=== PATIENT | female | born 1975 | race Caucasian/White ===

== ENCOUNTER 2017-06-20 14:14 | Observation (INO) | payer OTHER ==
[2017-06-20] MEDS ORDERED: SODIUM CHLORIDE 0.9% 1,000 ML IV STA (14:43)
[2017-06-20 15:25] LABS: ALT 43 U/L (9-52); AST 27 U/L (14-36); Alkaline Phosphatase 95 U/L (38-126); Anion Gap 11 mmol/L; Blood Urea Nitrogen 17 mg/dL (7-17); Calcium 9.8 mg/dL (8.4-10.2); Carbon Dioxide 22 mmol/L (22-30); Chloride 105 mmol/L (98-107); Glucose 75 mg/dL (74-99); Non-African American GFR(MDRD) >60 (>60 ml/min/1.73 sqM); Sodium 138 mmol/L (137-145); Total Bilirubin 0.4 mg/dL (0.2-1.3); Total Protein 7.9 g/dL (6.3-8.2)
[2017-06-20 15:28] LABS: Amorphous Sediment,Urine Rare /hpf; Appearance,Urine Clear (Clear); Bacteria,Urine Few /hpf; Bilirubin,Urine Negative (Negative); Glucose,Urine (UA) Negative (Negative); Ketones,Urine Negative (Negative); Leukocyte Esterase,Urine Negative (Negative); Mucus,Urine Rare /hpf; Nitrite,Urine Negative (Negative); PH, Urine 5.5 (5.0-8.0); Particle Count 4395; Protein,Urine Negative (Negative); RBC,Urine 2 /hpf (0-5); Specific Gravity,Urine 1.017 (1.001-1.035); Squamous Epithelial Cell,Urine 6 /hpf (0-4); UA Billing (MACRO vs. MICRO) MICRO; Urobilinogen,Urine <2.0 mg/dL (<2.0); WBC,Urine 5 /hpf (0-5)
[2017-06-20 15:30] LABS: Prothrombin Time 10.5 sec (9.0-12.0)
--- NOTE | 2017-06-20 15:32 | XR ---
EXAMINATION TYPE: XR chest 2V DATE OF EXAM: 06/20/2017 COMPARISON: Chest x-ray September 27, 2016. HISTORY: Cough, congestion, and fever. TECHNIQUE: Frontal and lateral views of the chest are obtained. FINDINGS: There is no focal air space opacity, pleural effusion, or pneumothorax seen. The cardiac silhouette size is within normal limits. The osseous structures are intact. IMPRESSION: No suspicious acute infiltrate on current study.
[2017-06-20 15:34] LABS: Creatine Kinase 139 U/L (30-135)
[2017-06-20 15:37] LABS: Partial Thromboplastin Time 20.4 sec (22.0-30.0)
[2017-06-20 15:41] LABS: Basophils % (A) 0 %; CH 32.1; Eosinophils # (A) 0.1 k/uL (0-0.7); Eosinophils % (A) 1 %; HCT 43.6 % (34.0-46.0); HDW 2.32; HGB 14.6 gm/dL (11.4-16.0); Luc % (Auto) 2; Lymphocytes # (A) 3.5 k/uL (1.0-4.8); Lymphocytes % (A) 35 %; MCH 30.9 pg (25.0-35.0); MCHC 33.5 g/dL (31.0-37.0); MCV 92.2 fL (80.0-100.0); Mean Platelet Volume 7.5; Monocytes # (A) 0.4 k/uL (0-1.0); Monocytes % (A) 4 %; Neutrophils # (A) 5.8 k/uL (1.3-7.7); Neutrophils % (A) 58 %; RBC 4.72 m/uL (3.80-5.40); RDW 14.1 % (11.5-15.5); WBC 10.1 k/uL (3.8-10.6); WBC (Perox) 9.23
[2017-06-20 15:47] LABS: Creatine Kinase MB 1.6 ng/mL (0.0-2.4); Troponin I <0.012 ng/mL (0.000-0.034)
[2017-06-20] MEDS ORDERED: ONDANSETRON 4 MG/2 ML VIAL IVP PRN (16:57)
[2017-06-20] MEDS ORDERED: NALOXONE 0.4 MG/ML 1 ML VIAL IV PRN (16:57)
[2017-06-20] MEDS ORDERED: ACETAMINOPHEN TAB 325 MG TAB PO PRN (16:57)
[2017-06-20] MEDS ORDERED: DEXTROSE 5%-0.45% NACL 1,000 ML IV SCH (17:00)
--- NOTE | 2017-06-20 17:05 | ED ---
General Adult HPI - General Chief complaint: Syncope Stated complaint: Syncope Time Seen by Provider: 06/20/17 14:42 Source: patient, RN notes reviewed Mode of arrival: ambulatory Limitations: no limitations - History of Present Illness Initial comments: 41-year-old female with history of Xmlsg-Ekoqvmein-Gyhex syndrome presents with syncopal and near syncopal episodes. Patient states that on Monday she had a fainting spell that lasted several seconds. She has second near syncopal episode on Monday as well. There was no significant trauma associated with this. Patient had a third near syncopal episode with profound lightheadedness, nausea and one episode of vomiting today. She did report some chest tightness with this episode as well as palpitations. She has a history of Owen-Parkinson -White status post ablation in 1999. No diarrhea. No fever. No cough. - Related Data Home Medications Medication Instructions Recorded Confirmed No Known Home Medications [No 05/19/16 06/20/17 Known Home Medications] Allergies Allergy/AdvReac Type Severity Reaction Status Date / Time ofloxacin [From Floxin] Allergy Rash/Hives Verified 06/20/17 15:10 Review of Systems ROS Statement: Those systems with pertinent positive or pertinent negative responses have been documented in the HPI. ROS Other: All systems not noted in ROS Statement are negative. Past Medical History Additional Past Medical History / Comment(s): owen parkinson white, RSD, MS History of Any Multi-Drug Resistant Organisms: None Reported Past Surgical History: Appendectomy, Heart Catheterization, Hysterectomy, Tonsillectomy Past Psychological History: No Psychological Hx Reported Smoking Status: Current every day smoker Past Alcohol Use History: None Reported Past Drug Use History: Marijuana General Exam Limitations: no limitations General appearance: alert, in no apparent distress Head exam: Present: atraumatic, normocephalic Eye exam: Present: normal appearance, PERRL ENT exam: Present: normal exam, mucous membranes moist Neck exam: Present: normal inspection. Absent: tenderness, meningismus Respiratory exam: Present: normal lung sounds bilaterally. Absent: respiratory distress Cardiovascular Exam: Present: regular rate, normal rhythm GI/Abdominal exam: Present: soft. Absent: distended, tenderness Extremities exam: Present: normal inspection, normal capillary refill. Absent: pedal edema Neurological exam: Present: alert, oriented X3, CN II-XII intact. Absent: motor sensory deficit Psychiatric exam: Present: normal affect, normal mood Skin exam: Present: warm, dry. Absent: cyanosis, diaphoretic Course Vital Signs 06/20/17 06/20/17 06/20/17 14:31 15:00 15:15 Temperature 98.3 F Pulse Rate 87 83 Pulse Rate [ [address] ] Pulse Rate [ Right Sitting] Pulse Rate [ Right Standing] Pulse Rate [ Right Supine] Respiratory 20 18 Rate Blood Pressure 158/85 142/80 Blood Pressure [Right Arm Sitting] Blood Pressure [Right Arm Standing] Blood Pressure [Right Arm Supine] O2 Sat by Pulse 99 97 Oximetry 06/20/17 16:22 Temperature Pulse Rate Pulse Rate [ [employer] ] Pulse Rate [ 85 Right Sitting] Pulse Rate [ 85 Right Standing] Pulse Rate [ 83 Right Supine] Respiratory 16 Rate Blood Pressure Blood Pressure 123/80 [Right Arm Sitting] Blood Pressure 130/88 [Right Arm Standing] Blood Pressure 122/74 [Right Arm Supine] O2 Sat by Pulse 97 Oximetry EKG Findings - EKG Comments: EKG Findings:: EKG shows normal sinus rhythm with no signs of Owen-Parkinson- White, ventricular rate 88, DE interval 156, QRS duration 84, QTC 462 Medical Decision Making - Medical Decision Making 41-year-old female presenting with multiple syncopal episodes over the past several days. Patient's EKG shows no ischemia, no arrhythmia, normal DE interval. Patient has a history of Rodam-Gqvljrudm-Rvvsq status post ablation, she is not currently on any medication. This study vital signs are unchanged, however the patient is symptomatic while transitioning from supine to seated. She was given IV fluids in the emergency department. Laboratory studies including CBC, CMP, and cardiac enzymes are unremarkable. Urinalysis shows no signs of infection. Patient did report some chest tightness with this episode. Which is currently resolved. Patient will be admitted for telemetry, cardiology evaluation, and serial cardiac enzymes. Diagnosis: Syncopal episode, chest pain - Lab Data Result diagrams: 06/20/17 15:30 06/20/17 15:00 Lab Results 06/20/17 06/20/17 06/20/17 Range/Units 15:00 15:00 15:00 WBC (3.8-10.6) k/uL RBC (3.80-5.40) m/uL Hgb (11.4-16.0) gm/dL Hct (34.0-46.0) % MCV (80.0-100.0) fL MCH (25.0-35.0) pg MCHC (31.0-37.0) g/dL RDW (11.5-15.5) % Plt Count (150-450) k/uL Neutrophils % % Lymphocytes % % Monocytes % % Eosinophils % % Basophils % % Neutrophils # (1.3-7.7) k/uL Lymphocytes # (1.0-4.8) k/uL Monocytes # (0-1.0) k/uL Eosinophils # (0-0.7) k/uL Basophils # (0-0.2) k/uL PT 10.5 (9.0-12.0) sec INR 1.0 (<1.2) APTT 20.4 L (22.0-30.0) sec D-Dimer 0.30 (<0.60) mg/L FEU Sodium 138 (137-145) mmol/L Potassium 4.0 (3.5-5.1) mmol/L Chloride 105 (98-107) mmol/L Carbon Dioxide 22 (22-30) mmol/L Anion Gap 11 mmol/L BUN 17 (7-17) mg/dL Creatinine 0.72 (0.52-1.04) mg/dL Est GFR (MDRD) Af Amer >60 (>60 ml/min/1.73 sqM) Est GFR (MDRD) Non-Af >60 (>60 ml/min/1.73 sqM) Glucose 75 (74-99) mg/dL Calcium 9.8 (8.4-10.2) mg/dL Magnesium 2.0 (1.6-2.3) mg/dL Total Bilirubin 0.4 (0.2-1.3) mg/dL AST 27 (14-36) U/L ALT 43 (9-52) U/L Alkaline Phosphatase 95 (38-126) U/L Total Creatine Kinase 139 H (30-135) U/L CK-MB (CK-2) 1.6 (0.0-2.4) ng/mL CK-MB (CK-2) Rel Index 1.2 Troponin I <0.012 (0.000-0.034) ng/mL Total Protein 7.9 (6.3-8.2) g/dL Albumin 4.8 (3.5-5.0) g/dL Urine Color Urine Appearance (Clear) Urine pH (5.0-8.0) Ur Specific [place] (1.001-1.035) Urine Protein (Negative) Urine Glucose (UA) (Negative) Urine Ketones (Negative) Urine Blood (Negative) Urine Nitrite (Negative) Urine Bilirubin (Negative) Urine Urobilinogen (<2.0) mg/dL Ur Leukocyte Esterase (Negative) Urine RBC (0-5) /hpf Urine WBC (0-5) /hpf Ur Squamous Epith Cells (0-4) /hpf Amorphous Sediment (None) /hpf Urine Bacteria (None) /hpf Urine Mucus (None) /hpf 06/20/17 06/20/17 Range/Units 15:00 15:30 WBC 10.1 (3.8-10.6) k/uL RBC 4.72 (3.80-5.40) m/uL Hgb 14.6 (11.4-16.0) gm/dL Hct 43.6 (34.0-46.0) % MCV 92.2 (80.0-100.0) fL MCH 30.9 (25.0-35.0) pg MCHC 33.5 (31.0-37.0) g/dL RDW 14.1 (11.5-15.5) % Plt Count 385 (150-450) k/uL Neutrophils % 58 % Lymphocytes % 35 % Monocytes % 4 % Eosinophils % 1 % Basophils % 0 % Neutrophils # 5.8 (1.3-7.7) k/uL Lymphocytes # 3.5 (1.0-4.8) k/uL Monocytes # 0.4 (0-1.0) k/uL Eosinophils # 0.1 (0-0.7) k/uL Basophils # 0.0 (0-0.2) k/uL PT (9.0-12.0) sec INR (<1.2) APTT (22.0-30.0) sec D-Dimer (<0.60) mg/L FEU Sodium (137-145) mmol/L Potassium (3.5-5.1) mmol/L Chloride (98-107) mmol/L Carbon Dioxide (22-30) mmol/L Anion Gap mmol/L BUN (7-17) mg/dL Creatinine (0.52-1.04) mg/dL Est GFR (MDRD) Af Amer (>60 ml/min/1.73 sqM) Est GFR (MDRD) Non-Af (>60 ml/min/1.73 sqM) Glucose (74-99) mg/dL Calcium (8.4-10.2) mg/dL Magnesium (1.6-2.3) mg/dL Total Bilirubin (0.2-1.3) mg/dL AST (14-36) U/L ALT (9-52) U/L Alkaline Phosphatase (38-126) U/L Total Creatine Kinase (30-135) U/L CK-MB (CK-2) (0.0-2.4) ng/mL CK-MB (CK-2) Rel Index Troponin I (0.000-0.034) ng/mL Total Protein (6.3-8.2) g/dL Albumin (3.5-5.0) g/dL Urine Color Yellow Urine Appearance Clear (Clear) Urine pH 5.5 (5.0-8.0) Ur Specific [place] 1.017 (1.001-1.035) Urine Protein Negative (Negative) Urine Glucose (UA) Negative (Negative) Urine Ketones Negative (Negative) Urine Blood Trace H (Negative) Urine Nitrite Negative (Negative) Urine Bilirubin Negative (Negative) Urine Urobilinogen <2.0 (<2.0) mg/dL Ur Leukocyte Esterase Negative (Negative) Urine RBC 2 (0-5) /hpf Urine WBC 5 (0-5) /hpf Ur Squamous Epith Cells 6 H (0-4) /hpf Amorphous Sediment Rare H (None) /hpf Urine Bacteria Few H (None) /hpf Urine Mucus Rare H (None) /hpf Disposition Clinical Impression: Syncope Disposition: ADMITTED IP TO THIS [facility] Condition: Stable Referrals: Neha Conway MD [Primary Care Provider] - 1-2 days Decision to Admit Reason: Admit from EC Decision Date: 06/20/17 Decision Time: 17:05
[2017-06-20 21:42] LABS: Creatine Kinase 110 U/L (30-135)
[2017-06-20 21:56] LABS: Creatine Kinase MB 1.1 ng/mL (0.0-2.4); Troponin I <0.012 ng/mL (0.000-0.034)
[2017-06-21 03:25] LABS: Creatine Kinase 101 U/L (30-135)
[2017-06-21 03:39] LABS: Troponin I <0.012 ng/mL (0.000-0.034)
[2017-06-21 08:34] VITALS: BP 123/78; PULSE 93; RESP 16; TEMP 98.1
--- NOTE | 2017-06-21 10:25 | P.HPIM ---
History of Present Illness H&P Date: 06/21/17 History of presenting complaint: This is a very pleasant [address] Kathy Awad. Patient has a history of Luevano Parkinson W syndrome. Has had ablation in the past. 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 Patient was in a bakery standing up doing stuff that ceased suddenly passed out for a short time she was told that she turned pale. There was no seizure activity no chest pain. Late in the evening which was doing dishes the same thing happen should be started again. This was about 4 days ago yesterday patient had an episode when she was in the bakery she passed out again come on rather suddenly. There was no seizure activity no tongue biting or urinary incontinence. No chest pain. 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 Medical marijuana daily. Patient is lives with her family. [id number] in [place]. Home medications: None ALLERGIES: Ofloxacin Family history: Diabetes heart attack kidney disease, black lung cancer VITAL SIGNS: 98.3, 84, 20, 150/85, 99% room air GENERAL: Average built, sitting up, comfortable. EYES: Pupils equal. Conjunctiva normal. HEENT: External appearance of nose and ears normal, oral cavity grossly normal. NECK: JVD not raised; masses not palpable. HEART: First and second heart sounds are normal; no edema. LUNGS: Respiratory rate normal; clear to auscultation. ABDOMEN: Soft, nontender, liver spleen not palpable, no masses palpable. LYMPHATICS: No lymph nodes palpable in the axilla and neck. PSYCH: Alert and oriented x3; mood and affect normal. NEUROLOGICAL: Cranial nerves grossly intact; no facial asymmetry, power and sensation grossly intact. Investigations: White count 10.1 hemoglobin 14.6 potassium 4.0. Renal function normal, troponin 3 negative EKG-unremarkable Assessment: -Episodes of sudden syncope/passing out 3 times in the last 4 days with a prior history of WPW syndrome. History/presentation is not compatible with seizure activity at this point. Most likely underlying arrhythmia. 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 Cardiology was consulted. Patient was told she cannot drive until she is given medical clearance.. Past Medical History Past Medical History: Cancer, Pneumonia Additional Past Medical History / Comment(s): aliya parkinson white syndrome, RSD , "had a seizure 2003 r/t rsd- none since and takes no meds", age 22 had cervical cancer-had total hysterectomy/chemo, kidney stones, polynephritis History of Any Multi-Drug Resistant Organisms: None Reported Past Surgical History: Appendectomy, Cardiac Ablation, Heart Catheterization, Hysterectomy, Tonsillectomy Additional Past Surgical History / Comment(s): ablation 1999 Past Anesthesia/Blood Transfusion Reactions: No Reported Reaction Smoking Status: Former smoker - Past Family History Father Family Medical History: Diabetes Mellitus, Myocardial Infarction ([place]), Renal Disease Mother Family Medical History: Cancer, CVA/TIA Additional Family Medical History / Comment(s): "black lung-cancer Brother(s) Additional Family Medical History / Comment(s): 2 brothers with wpw syndrome Medications and Allergies Home Medications Medication Instructions Recorded Confirmed Type No Known Home Medications [No 05/19/16 06/20/17 History Known Home Medications] Allergies Allergy/AdvReac Type Severity Reaction Status Date / Time ofloxacin [From Floxin] Allergy Rash/Hives Verified 06/20/17 15:10 Results CBC & Chem 7: 06/20/17 15:30 06/20/17 15:00 Thrombosis Risk Factor Assmnt - Choose All That Apply Any of the Below Risk Factors Present?: Yes Each Factor Represents 1 point: Age 41-60 years, Obesity (BMI >25) Other Risk Factors: Yes Each Risk Factor Represents 2 Points: Malignancy Thrombosis Risk Factor Assessment Total Risk Factor Score: 4 Thrombosis Risk Factor Assessment Level: Moderate Risk
--- NOTE | 2017-06-21 10:34 | P.DS ---
Providers Date of admission: 06/20/17 16:57 Expected date of discharge: 06/21/17 Attending physician: Rigoberto Stubbs Consults: 06/20/17 16:58 Consult Physician Urgent Consulting Provider: Justus Peraza Consult Reason/Comments: Syncope Do you want consulting provider notified?: Yes, Notify in am Primary care physician: [facility] Course: This is a very pleasant [address] Kathy Juarez. Patient has a history of Luevano Parkinson W syndrome. Has had ablation in the past. 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 Patient was in a bakery standing up doing stuff that ceased suddenly passed out for a short time she was told that she turned pale. There was no seizure activity no chest pain. Late in the evening which was doing dishes the same thing happen should be started again. This was about 4 days ago yesterday patient had an episode when she was in the bakery she passed out again come on rather suddenly. There was no seizure activity no tongue biting or urinary incontinence. No chest pain. Telemetry remained unremarkable. Patient was seen by Dr. Parham from cardiology. He cleared the patient to go home. Patient will get an outpatient stress test and a event monitor. Troponins were negative. Physical exam: Lungs-clear, cardiovascular-first seconds are normal, no neuro deficits [id number]. BR Reddy Patient Condition at Discharge: Stable Plan - Discharge Summary New Discharge Prescriptions: No Action No Known Home Medications [No Known Home Medications] Discharge Medication List No Known Home Medications [No Known Home Medications] 05/19/16 [History] Follow up Appointment(s)/Referral(s): Neha Conway MD [Primary Care Provider] - 1-2 days Patient Instructions/Handouts: Syncope (DC) Activity/Diet/Wound Care/Special Instructions: NO DRIVING TILL MEDICALLY CLEARED
--- NOTE | 2017-06-21 11:47 | ECHOF ---
Referral Reason: MEASUREMENTS -------- HEIGHT: 162.6 cm WEIGHT: 78.5 kg BP: 123/71 IVSd: 0.8 cm (0.6 - 1.1) LVIDd: 3.8 cm (3.9 - 5.3) LVPWd: 1.0 cm (0.6 - 1.1) IVSs: 1.5 cm LVIDs: 1.5 cm LVPWs: 1.5 cm Ao Diam: 3.0 cm (2.0 - 3.7) AV Cusp: 2.1 cm (1.5 - 2.6) LA Diam: 3.1 cm (2.7 - 3.8) MV EXCURSION: 14.230 mm (> 18.000) MV EF SLOPE: 99 mm/s (70 - 150) EPSS: 0.8 cm MV E Hollis: 1.03 m/s MV DecT: 237 ms MV A Hollis: 0.47 m/s MV E/A Ratio: 2.18 RAP: 5.00 mmHg RVSP: 12.70 mmHg FINDINGS -------- Sinus rhythm. This was a technically good study. Left ventricular wall thickness is normal. Overall left ventricular systolic function is normal with, an EF between 55 - 60 %. The right ventricle is normal in size and function. The left atrium is normal in size. The right atrium is normal in size. The aortic valve is trileaflet, and appears structurally normal. No aortic stenosis or regurgitation. There is trace mitral regurgitation. Trace tricuspid regurgitation present. The right ventricular systolic pressure, as measured by Doppler, is 12.70mmHg. Pulmonic valve appears structurally normal. The aortic root size is normal. The pericardium is normal. CONCLUSIONS -------- 1. Sinus rhythm. 2. Trace tricuspid regurgitation present. 3. The right ventricular systolic pressure, as measured by Doppler, is 12.70mmHg. 4. Pulmonic valve appears structurally normal. 5. The aortic root size is normal. 6. The pericardium is normal. 7. This was a technically good study. 8. Left ventricular wall thickness is normal. 9. Overall left ventricular systolic function is normal with, an EF between 55 - 60 %. 10. The right ventricle is normal in size and function. 11. The left atrium is normal in size. 12. The right atrium is normal in size. 13. The aortic valve is trileaflet, and appears structurally normal. No aortic stenosis or regurgitation. 14. There is trace mitral regurgitation. [employer]: Makenna Pal RDCS
--- NOTE | 2017-06-21 12:59 | P.CRDCN ---
History of Present Illness Consult date: 06/21/17 History of present illness: This is a 41-year-old female who presents to the emergency department with complaints of 3 syncopal episodes. She states this episode comes on with no warning. Everything becomes black and she loses consciousness momentarily. When she comes to she is extremely nauseous, with palpitations and mild chest discomfort. The symptoms resolved on their own with no specific alleviating factors. She states she does have a history of Luevano Parkinson White syndrome and had an ablation in [address] [facility]. 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 Upon examination she is seen resting comfortably bed in no acute distress. She denies chest pain, shortness of breath, dizziness, palpitations, nausea or vomiting. EKG indicates a normal sinus mechanism, chest x-ray is negative for any cardiopulmonary process, troponins are negative 3. Review of Systems REVIEW OF SYSTEMS: Patient denies any chest discomfort. No shortness of breath. No diaphoresis. She denies headache, dizziness, blurred vision, double vision. No dyspnea on exertion. Patient denies any stomach discomfort. No nausea, vomiting. No hematochezia. No hematemesis. Denies any black stools or blood in his stools. No syncope. No palpitations. No cough. No recent fever or chills. Denies dysuria or hematuria. No muscle weakness or numbness. Past Medical History Past Medical History: Cancer, Pneumonia Additional Past Medical History / Comment(s): aliya parkinson white syndrome, RSD , "had a seizure 2003 r/t rsd- none since and takes no meds", age 22 had cervical cancer-had total hysterectomy/chemo, kidney stones, polynephritis History of Any Multi-Drug Resistant Organisms: None Reported Past Surgical History: Appendectomy, Cardiac Ablation, Heart Catheterization, Hysterectomy, Tonsillectomy Additional Past Surgical History / Comment(s): ablation 1999 Past Anesthesia/Blood Transfusion Reactions: No Reported Reaction Smoking Status: Former smoker - Past Family History Father Family Medical History: Diabetes Mellitus, Myocardial Infarction ([place]), Renal Disease Mother Family Medical History: Cancer, CVA/TIA Additional Family Medical History / Comment(s): "black lung-cancer Brother(s) Additional Family Medical History / Comment(s): 2 brothers with wpw syndrome Medications and Allergies Home Medications Medication Instructions Recorded Confirmed Type No Known Home Medications [No 05/19/16 06/20/17 History Known Home Medications] Allergies Allergy/AdvReac Type Severity Reaction Status Date / Time ofloxacin [From Floxin] Allergy Rash/Hives Verified 06/20/17 15:10 Physical Exam Vitals: Vital Signs Temp Pulse Pulse Pulse Pulse Pulse Resp 06/21/17 03:48 72 18 06/21/17 03:43 98 F 70 18 06/21/17 00:00 66 18 06/20/17 20:00 62 18 06/20/17 19:32 97.8 F 79 18 06/20/17 17:46 98.0 F 87 18 06/20/17 17:26 97.6 F 81 18 06/20/17 16:22 85 85 83 16 06/20/17 15:15 83 18 06/20/17 15:00 84 06/20/17 14:31 98.3 F 87 20 BP BP BP BP Pulse Ox 06/21/17 03:48 06/21/17 03:43 123/71 94 L 06/21/17 00:00 115/69 94 L 06/20/17 20:00 06/20/17 19:32 133/86 95 06/20/17 17:46 129/93 96 06/20/17 17:26 132/92 100 06/20/17 16:22 123/80 130/88 122/74 97 06/20/17 15:15 142/80 97 06/20/17 15:00 06/20/17 14:31 158/85 99 Intake and Output 06/20/17 06/21/17 06/21/17 22:59 06:59 14:59 Intake Total 240 Balance 240 Intake: Oral 240 Other: Voiding Method Toilet Toilet Weight 78.9 kg GENERAL: This is a 41-year-old female in no apparent distress at the time of my examination. HEENT: Head is atraumatic, normocephalic. Pupils are equal, round. Sclerae anicteric. Conjunctivae are clear. Mucous membranes of the mouth are moist. Neck is supple. There is no jugular venous distention. No carotid bruit is heard. LUNGS: Clear to auscultation and precussion. No chest wall tenderness is noted on palpation or with deep breathing. HEART: Regular rate and rhythm without murmurs, rubs or gallops. S1 and S2 heard. ABDOMEN: Soft, nontender. Bowel sounds are heard. No organomegaly noted. EXTREMITIES: 2+ peripheral pulses with no evidence of peripheral edema and no calf tenderness noted. NEUROLOGIC: Patient is awake, alert and oriented x3. Results 06/20/17 15:30 06/20/17 15:00 Cardiac Enzymes 06/20/17 06/20/17 06/20/17 Range/Units 15:00 15:00 20:55 AST 27 (14-36) U/L CK-MB (CK-2) 1.6 1.1 (0.0-2.4) ng/mL Troponin I <0.012 <0.012 (0.000-0.034) ng/mL 06/21/17 Range/Units 02:47 AST (14-36) U/L CK-MB (CK-2) 1.0 (0.0-2.4) ng/mL Troponin I <0.012 (0.000-0.034) ng/mL Coagulation 06/20/17 Range/Units 15:00 PT 10.5 (9.0-12.0) sec APTT 20.4 L (22.0-30.0) sec CBC 06/20/17 Range/Units 15:30 WBC 10.1 (3.8-10.6) k/uL RBC 4.72 (3.80-5.40) m/uL Hgb 14.6 (11.4-16.0) gm/dL Hct 43.6 (34.0-46.0) % Plt Count 385 (150-450) k/uL Comprehensive Metabolic Panel 06/20/17 Range/Units 15:00 Sodium 138 (137-145) mmol/L Potassium 4.0 (3.5-5.1) mmol/L Chloride 105 (98-107) mmol/L Carbon Dioxide 22 (22-30) mmol/L BUN 17 (7-17) mg/dL Creatinine 0.72 (0.52-1.04) mg/dL Glucose 75 (74-99) mg/dL Calcium 9.8 (8.4-10.2) mg/dL AST 27 (14-36) U/L ALT 43 (9-52) U/L Alkaline Phosphatase 95 (38-126) U/L Total Protein 7.9 (6.3-8.2) g/dL Albumin 4.8 (3.5-5.0) g/dL Current Medications Generic Name Dose Route Start Last Admin Trade Name Freq PRN Reason Stop Dose Admin Acetaminophen 650 mg 06/20/17 16:57 Tylenol Tab PO Q6HR PRN Mild Pain or Fever > 100.5 Dextrose/Sodium Chloride 1,000 mls @ 50 mls/hr 06/20/17 17:00 06/20/17 18:18 Dextrose 5%-1/2ns Iv Soln IV Not Given .Q20H AZ Naloxone HCl 0.2 mg 06/20/17 16:57 Narcan IV Q2M PRN Opioid Reversal Ondansetron HCl 4 mg 06/20/17 16:57 Zofran IVP Q8HR PRN Nausea And Vomiting Intake and Output 06/20/17 06/21/17 06/21/17 22:59 06:59 14:59 Intake Total 240 Balance 240 Intake: Oral 240 Other: Voiding Method Toilet Toilet Weight 78.9 kg 06/20/17 15:30 06/20/17 15:00 - Imaging and Cardiology Echo: report reviewed - EKG Interpretation EKG: sinus rhythm, normal QRS, normal ST/T Assessment and Plan Plan: ASSESSMENT 1. Syncopal episode. PLAN 1. Echocardiogram indicates preserved left ventricular function with an ejection fraction of 55-60%, trace tricuspid regurgitation, right ventricular systolic pressure 12.70 mmHg. Check thyroid. I recommend that the patient is an event monitor for the next 30 days. She is to follow-up with Dr. Parham for stress test on Monday. Please make these appointments prior to discharge. Nurse Practitioner note has been reviewed, I agree with a documented findings and plan of care. Patient was seen and examined.
== END 2017-06-21 10:37 | disposition home or self-care (01) ==
LOC: EC 14:14 → 3OBS 16:57
PROVIDERS: ADMIT Hospitalist; ATTEND Hospitalist
DX: R55 Syncope and collapse (principal); I45.6 Pre-excitation syndrome; Z88.1 Allergy status to other antibiotic agents; R07.89 Other chest pain; R00.2 Palpitations; R11.2 Nausea with vomiting, unspecified; Z85.41 Personal history of malignant neoplasm of cervix uteri; Z92.21 Personal history of antineoplastic chemotherapy; Z83.3 Family history of diabetes mellitus; Z82.49 Family history of ischemic heart disease and other diseases of the circulatory system; Z87.828 Personal history of other (healed) physical injury and trauma; F12.90 Cannabis use, unspecified, uncomplicated; F17.200 Nicotine dependence, unspecified, uncomplicated; G90.59 Complex regional pain syndrome I of other specified site
CPT/HCPCS: 99285; 96360; 96361; 36415; 93005; 93306; 93270; 93271; 85379; 80053; 84443; 82550 ×2; 82553 ×2; 83735; 84484 ×2; 85025; 85610; 85730; 81001; 71020; G0378 ×2

== ENCOUNTER → 2017-12-01 | Outpatient (CLI) | payer OTHER ==
--- NOTE | 2017-12-01 12:24 | XR ---
EXAMINATION TYPE: XR chest 2V DATE OF EXAM: 12/01/2017 COMPARISON: Prior chest x-ray 06/20/2017 HISTORY: Cough and fever TECHNIQUE: Frontal and lateral views of the chest are obtained. FINDINGS: There is no focal air space opacity, pleural effusion, or pneumothorax seen. The cardiac silhouette size is within normal limits. Bronchial wall thickening is present. There may be an old cl avicular fracture on the left, stable appearance. Patient is rotated. Surgical clips present in the upper abdomen. The osseous structures are intact. IMPRESSION: Correlate for possible bronchitis, reactive airways disease. Follow-up as indicated.
== END ==
LOC: RADXRMAIN 11:47
PROVIDERS: ATTEND Family Medicine
DX: R05 Cough (principal); R50.9 Fever, unspecified
CPT/HCPCS: 71046; 87502

== ENCOUNTER → 2017-12-19 | Outpatient (CLI) | payer OTHER ==
--- NOTE | 2017-12-19 09:49 | US ---
EXAMINATION TYPE: US carotid duplex BILAT DATE OF EXAM: 12/19/2017 COMPARISON: NONE CLINICAL HISTORY: R55 Syncope. Pt states syncope with collapse EXAM MEASUREMENTS: RIGHT: Peak Systolic Velocity (PSV) cm/sec ----- Right CCA: 73.5 ----- Right ICA: 81.4 ----- Right ECA: 107.3 ICA/CCA ratio: 1.1 RIGHT: End Diastole cm/sec ----- Right CCA: 30.7 ----- Right ICA: 41.3 ----- Right ECA: 32.2 LEFT: Peak Systolic Velocity (PSV) cm/sec ----- Left CCA: 83.4 ----- Left ICA: 76.8 ----- Left ECA: 93.1 ICA/CCA ratio: 0.9 LEFT: End Diastole cm/sec ----- Left CCA: 28.5 ----- Left ICA: 28.5 ----- Left ECA: 25.8 VERTEBRALS (direction of flow): Right Vertebral: Antegrade Left Vertebral: Antegrade Rhythm: Normal No significant stenosis seen IMPRESSION: No hemodynamically significant stenosis identified. Criteria for Assigning % of Stenosis / Diameter reduction (Estimation based on the indirect measurements of the internal carotid artery velocities (ICA PSV). 1. Normal (no stenosis)=ICA PSV < 125 cm/s: ratio < 2.0: ICA EDV<40 cm/s. 2. Less than 50% stenosis=ICA PSV < 125 cm/s: ratio < 2.0: ICA EDV<40 cm/s. 3. 50 to 69% stenosis=ICA PSV of 125 to 230 cm/s: ration 2.0 ? 4.0: ICA EDV 40-100 cm/s. 4. Greater than 70% stenosis to near occlusion= ICA PSV > 230 cm/s: ratio > 4.0: ICA EDV > 100 cm/s. 5. Near occlusion= ICA PSV velocities may be low or undetectable: variable ratio and ICA EDV. 6. Total occlusion=unable to detect flow.
== END | disposition home or self-care (01) ==
LOC: RADMRIMAIN 08:50
PROVIDERS: ATTEND Family Medicine
DX: R55 Syncope and collapse (principal)
CPT/HCPCS: 93880

== ENCOUNTER 2018-01-12 11:37 | Observation (INO) | payer OTHER ==
[2018-01-12] MEDS ORDERED: ONDANSETRON 4 MG/2 ML VIAL IVP STA (11:58)
[2018-01-12] MEDS ORDERED: SODIUM CHLORIDE 0.9% 1,000 ML IV STA (11:58)
--- NOTE | 2018-01-12 12:14 | ED ---
General Adult HPI <Hardeep Morocho - Last Filed: 01/12/18 16:07> - General Source: patient, RN notes reviewed Mode of arrival: ambulatory Limitations: no limitations <Edenilson Goff - Last Filed: 01/12/18 16:11> - General Chief complaint: Syncope Stated complaint: chest pain, sob Time Seen by Provider: 01/12/18 11:49 - History of Present Illness Initial comments: Patient 42-year-old female significant past medical history for WPW, hyperlipidemia, presenting to the emergency room today with a syncopal episode. Patient does admit starting last night she began having some symptoms of lightheadedness and dizziness. She states it is worse when she is up moving around. She states she becomes nauseous her vision gets dark. She states she had an episode when she was washing the dishes and that she was going to faint and was able to get herself down to the ground. She states she's not herself with the fall. She admits she gets nauseated with these episodes. She states she's had this in the past when she was diagnosed with WPW. She states she had an ablation performed but states that it did not fix the problem but she was good for very long time. She states her symptoms began again approximately 6 months ago. She states been trying to follow back up with the cloth tester quality missed an appointment. She states it seemed to be getting better but again has started back up more recently. States still feeling lightheaded and dizzy at this time. She does admit to feeling some chest pain like a "rubber band" sensation along with some shortness of breath. She states her only symptoms are consistent with episodes that she's had in the past. She denies anything new today. Patient denies any recent fever, chills, back pain, abdominal pain, numbness or tingling, dysuria or hematuria, constipation or diarrhea, headaches or visual changes, or any other complaints. (Edenilson Goff) - Related Data Home Medications Medication Instructions Recorded Confirmed Atorvastatin Calcium [Lipitor] 10 mg PO HS 01/12/18 01/12/18 Ergocalciferol [Vitamin D2] 50,000 unit PO GARCIA 01/12/18 01/12/18 Allergies Allergy/AdvReac Type Severity Reaction Status Date / Time ofloxacin [From Floxin] Allergy Rash/Hives Verified 01/12/18 11:56 Review of Systems ROS Other: All systems not noted in ROS Statement are negative. <Hardeep Morocho - Last Filed: 01/12/18 16:07> ROS Other: All systems not noted in ROS Statement are negative. <GoffEdenilson - Last Filed: 01/12/18 16:11> ROS Statement: Those systems with pertinent positive or pertinent negative responses have been documented in the HPI. Past Medical History Past Medical History: Cancer, Pneumonia Additional Past Medical History / Comment(s): aliya parkinson white syndrome, RSD , "had a seizure 2003 r/t rsd- none since and takes no meds", age 22 had cervical cancer-had total hysterectomy/chemo, kidney stones, polynephritis History of Any Multi-Drug Resistant Organisms: None Reported Past Surgical History: Appendectomy, Cardiac Ablation, Heart Catheterization, Hysterectomy, Tonsillectomy Additional Past Surgical History / Comment(s): ablation 1999 Past Anesthesia/Blood Transfusion Reactions: No Reported Reaction Past Psychological History: Anxiety, Bipolar, Depression Smoking Status: Former smoker Past Alcohol Use History: None Reported Past Drug Use History: Marijuana - Past Family History Father Family Medical History: Diabetes Mellitus, Myocardial Infarction ([place]), Renal Disease Mother Family Medical History: Cancer, CVA/TIA Additional Family Medical History / Comment(s): "black lung-cancer Brother(s) Additional Family Medical History / Comment(s): 2 brothers with wpw syndrome <DenverEdenilson - Last Filed: 01/12/18 16:11> General Exam <Hardeep Morocho - Last Filed: 01/12/18 16:07> Limitations: no limitations <Edenilson Goff - Last Filed: 01/12/18 16:11> - General Exam Comments Initial Comments: General: The patient is awake and alert, in no distress, and does not appear acutely ill. Eye: Pupils are equal, round and reactive to light, extra-ocular movements are intact. No nystagmus. There is normal conjunctiva bilaterally. No signs of icterus. Ears, nose, mouth and throat: There are moist mucous membranes and no oral lesions. Neck: The neck is supple, there is no tenderness or JVD. Cardiovascular: There is a regular rate and rhythm. No murmur, rub or gallop is appreciated. Respiratory: Lungs are clear to auscultation, respirations are non-labored, breath sounds are equal. No wheezes, stridor, rales, or rhonchi. Musculoskeletal: Normal ROM, no tenderness. Strength 5/5. Sensation intact. Pulses equal bilaterally 2+. Neurological: A&O x 3. CN II-XII intact, There are no obvious motor or sensory deficits. Coordination appears grossly intact. Speech is normal. Skin: Skin is warm and dry and no rashes or lesions are noted. Psychiatric: Cooperative, appropriate mood & affect, normal judgment. (Edenilson Goff) Course <Hardeep Morocho - Last Filed: 01/12/18 16:07> <Edenilson Goff - Last Filed: 01/12/18 16:11> Vital Signs 01/12/18 01/12/18 01/12/18 11:41 12:26 14:10 Temperature 98.6 F Pulse Rate 115 H 91 85 Pulse Rate [ Right Sitting] Pulse Rate [ Right Standing] Pulse Rate [ Right Supine] Respiratory 18 18 18 Rate Blood Pressure 135/76 145/81 129/89 Blood Pressure [Left Arm Sitting] Blood Pressure [Left Arm Standing] Blood Pressure [Left Arm Supine] O2 Sat by Pulse 96 97 95 Oximetry 01/12/18 15:53 Temperature Pulse Rate Pulse Rate [ 84 Right Sitting] Pulse Rate [ 84 Right Standing] Pulse Rate [ 84 Right Supine] Respiratory 18 Rate Blood Pressure Blood Pressure 141/78 [Left Arm Sitting] Blood Pressure 141/83 [Left Arm Standing] Blood Pressure 128/72 [Left Arm Supine] O2 Sat by Pulse 100 Oximetry - Reevaluation(s) Reevaluation #1: 01/12/18 16:07 Patient was earlier reexamined by myself, Dr. Morocho. Patient resting comfortably in bed and is symptom-free at This point. Patient states she has had several episodes especially over the past couple of months. Patient did recently see her doctor and has just started a workup for this. Case was discussed in detail with Dr. Browning who does recommend calling cardiology. Orthostatics were done. Case was discussed with Dr. Parham from cardiology who does recommend admission and consult for them. Case was then discussed with Dr. salguero, covering for Dr. Browning who will admit. (Hardeep Morocho) EKG Findings - EKG Comments: EKG Findings:: EKG performed at 1155: Shows normal sinus rhythm at 100 bpm. IA interval 134. QRS 82. QT/QTc is 346/446. EKGs been compared to previous EKG on 06/21/2017 showing no acute changes. No evidence for WPW. No acute ST change. <Edenilson Goff - Last Filed: 01/12/18 16:11> Medical Decision Making - Lab Data Result diagrams: 01/12/18 12:07 01/12/18 12:07 <Hardeep Morocho - Last Filed: 01/12/18 16:07> - Lab Data Result diagrams: 01/12/18 12:07 01/12/18 12:07 <Edenilson Goff - Last Filed: 01/12/18 16:11> - Lab Data Lab Results 01/12/18 01/12/18 01/12/18 Range/Units 11:30 11:30 12:07 WBC (3.8-10.6) k/uL RBC (3.80-5.40) m/uL Hgb (11.4-16.0) gm/dL Hct (34.0-46.0) % MCV (80.0-100.0) fL MCH (25.0-35.0) pg MCHC (31.0-37.0) g/dL RDW (11.5-15.5) % Plt Count (150-450) k/uL Neutrophils % % Lymphocytes % % Monocytes % % Eosinophils % % Basophils % % Neutrophils # (1.3-7.7) k/uL Lymphocytes # (1.0-4.8) k/uL Monocytes # (0-1.0) k/uL Eosinophils # (0-0.7) k/uL Basophils # (0-0.2) k/uL PT (9.0-12.0) sec INR (<1.2) APTT (22.0-30.0) sec D-Dimer (<0.60) mg/L FEU Sodium (137-145) mmol/L Potassium (3.5-5.1) mmol/L Chloride (98-107) mmol/L Carbon Dioxide (22-30) mmol/L Anion Gap mmol/L BUN (7-17) mg/dL Creatinine (0.52-1.04) mg/dL Est GFR (MDRD) Af Amer (>60 ml/min/1.73 sqM) Est GFR (MDRD) Non-Af (>60 ml/min/1.73 sqM) Glucose (74-99) mg/dL Calcium (8.4-10.2) mg/dL Magnesium (1.6-2.3) mg/dL Total Bilirubin (0.2-1.3) mg/dL AST (14-36) U/L ALT (9-52) U/L Alkaline Phosphatase (38-126) U/L Total Creatine Kinase 64 (30-135) U/L CK-MB (CK-2) <0.2 (0.0-2.4) ng/mL CK-MB (CK-2) Rel Index Troponin I <0.012 (0.000-0.034) ng/mL Total Protein (6.3-8.2) g/dL Albumin (3.5-5.0) g/dL Urine Color Yellow Urine Appearance Clear (Clear) Urine pH 5.5 (5.0-8.0) Ur Specific Sanford 1.022 (1.001-1.035) Urine Protein Trace H (Negative) Urine Glucose (UA) Negative (Negative) Urine Ketones Negative (Negative) Urine Blood Small H (Negative) Urine Nitrite Negative (Negative) Urine Bilirubin Negative (Negative) Urine Urobilinogen <2.0 (<2.0) mg/dL Ur Leukocyte Esterase Negative (Negative) Urine RBC 1 (0-5) /hpf Urine WBC 2 (0-5) /hpf Ur Squamous Epith Cells 5 H (0-4) /hpf Urine Bacteria Rare H (None) /hpf Urine Mucus Occasional H (None) /hpf Urine HCG, Qual Not Detected (Not Detectd) 01/12/18 01/12/18 01/12/18 Range/Units 12:07 12:07 12:07 WBC 12.5 H (3.8-10.6) k/uL RBC 4.89 (3.80-5.40) m/uL Hgb 15.2 (11.4-16.0) gm/dL Hct 44.3 (34.0-46.0) % MCV 90.8 (80.0-100.0) fL MCH 31.0 (25.0-35.0) pg MCHC 34.2 (31.0-37.0) g/dL RDW 12.4 (11.5-15.5) % Plt Count 404 (150-450) k/uL Neutrophils % 66 % Lymphocytes % 26 % Monocytes % 4 % Eosinophils % 1 % Basophils % 1 % Neutrophils # 8.3 H (1.3-7.7) k/uL Lymphocytes # 3.3 (1.0-4.8) k/uL Monocytes # 0.5 (0-1.0) k/uL Eosinophils # 0.1 (0-0.7) k/uL Basophils # 0.1 (0-0.2) k/uL PT 10.5 (9.0-12.0) sec INR 1.1 (<1.2) APTT 23.2 (22.0-30.0) sec D-Dimer 0.35 (<0.60) mg/L FEU Sodium 141 (137-145) mmol/L Potassium 4.7 (3.5-5.1) mmol/L Chloride 104 (98-107) mmol/L Carbon Dioxide 24 (22-30) mmol/L Anion Gap 13 mmol/L BUN 20 H (7-17) mg/dL Creatinine 0.78 (0.52-1.04) mg/dL Est GFR (MDRD) Af Amer >60 (>60 ml/min/1.73 sqM) Est GFR (MDRD) Non-Af >60 (>60 ml/min/1.73 sqM) Glucose 94 (74-99) mg/dL Calcium 10.3 H (8.4-10.2) mg/dL Magnesium 2.0 (1.6-2.3) mg/dL Total Bilirubin 0.4 (0.2-1.3) mg/dL AST 26 (14-36) U/L ALT 36 (9-52) U/L Alkaline Phosphatase 95 (38-126) U/L Total Creatine Kinase (30-135) U/L CK-MB (CK-2) (0.0-2.4) ng/mL CK-MB (CK-2) Rel Index Troponin I (0.000-0.034) ng/mL Total Protein 7.8 (6.3-8.2) g/dL Albumin 4.6 (3.5-5.0) g/dL Urine Color Urine Appearance (Clear) Urine pH (5.0-8.0) Ur Specific Sanford (1.001-1.035) Urine Protein (Negative) Urine Glucose (UA) (Negative) Urine Ketones (Negative) Urine Blood (Negative) Urine Nitrite (Negative) Urine Bilirubin (Negative) Urine Urobilinogen (<2.0) mg/dL Ur Leukocyte Esterase (Negative) Urine RBC (0-5) /hpf Urine WBC (0-5) /hpf Ur Squamous Epith Cells (0-4) /hpf Urine Bacteria (None) /hpf Urine Mucus (None) /hpf Urine HCG, Qual (Not Detectd) Disposition <Hardeep Morocho - Last Filed: 01/12/18 16:07> Time of Disposition: 16:11 <Edenilson Goff - Last Filed: 01/12/18 16:11> Clinical Impression: Syncope, Chest pain Disposition: ADMITTED IP TO THIS HOSP Condition: Stable Referrals: Neha Conway MD [Primary Care Provider] - 1-2 days
[2018-01-12 12:19] LABS: Basophils # (A) 0.1 k/uL (0-0.2); Basophils % (A) 1 %; Eosinophils # (A) 0.1 k/uL (0-0.7); Eosinophils % (A) 1 %; HCT 44.3 % (34.0-46.0); HGB 15.2 gm/dL (11.4-16.0); Lymphocytes # (A) 3.3 k/uL (1.0-4.8); Lymphocytes % (A) 26 %; MCHC 34.2 g/dL (31.0-37.0); MCV 90.8 fL (80.0-100.0); Mean Platelet Volume 6.8; Monocytes # (A) 0.5 k/uL (0-1.0); Monocytes % (A) 4 %; Neutrophils # (A) 8.3 k/uL (1.3-7.7); Neutrophils % (A) 66 %; Platelet Count 404 k/uL (150-450); RBC 4.89 m/uL (3.80-5.40); RDW 12.4 % (11.5-15.5); WBC 12.5 k/uL (3.8-10.6)
[2018-01-12 12:44] LABS: ALT 36 U/L (9-52); AST 26 U/L (14-36); Albumin 4.6 g/dL (3.5-5.0); Alkaline Phosphatase 95 U/L (38-126); Anion Gap 13 mmol/L; Blood Urea Nitrogen 20 mg/dL (7-17); Calcium 10.3 mg/dL (8.4-10.2); Carbon Dioxide 24 mmol/L (22-30); Chloride 104 mmol/L (98-107); Glucose 94 mg/dL (74-99); Potassium 4.7 mmol/L (3.5-5.1); Sodium 141 mmol/L (137-145); Total Bilirubin 0.4 mg/dL (0.2-1.3); Total Protein 7.8 g/dL (6.3-8.2)
[2018-01-12 12:46] LABS: Appearance,Urine Clear (Clear); Bacteria,Urine Rare /hpf; Bilirubin,Urine Negative (Negative); Blood,Urine Small (Negative); Color,Urine Yellow; Glucose,Urine (UA) Negative (Negative); Ketones,Urine Negative (Negative); Leukocyte Esterase,Urine Negative (Negative); Mucus,Urine Occasional /hpf; PH, Urine 5.5 (5.0-8.0); Protein,Urine Trace (Negative); RBC,Urine 1 /hpf (0-5); Specific Gravity,Urine 1.022 (1.001-1.035); Squamous Epithelial Cell,Urine 5 /hpf (0-4); Urobilinogen,Urine <2.0 mg/dL (<2.0); WBC,Urine 2 /hpf (0-5)
[2018-01-12 12:52] LABS: D-Dimer 0.35 mg/L FEU (<0.60); INR 1.1 (<1.2); Partial Thromboplastin Time 23.2 sec (22.0-30.0); Prothrombin Time 10.5 sec (9.0-12.0)
[2018-01-12 12:55] LABS: Creatine Kinase 64 U/L (30-135)
[2018-01-12 13:08] LABS: Creatine Kinase MB <0.2 ng/mL (0.0-2.4); Troponin I <0.012 ng/mL (0.000-0.034)
--- NOTE | 2018-01-12 13:20 | XR ---
EXAMINATION TYPE: XR chest 2V DATE OF EXAM: 01/12/2018 COMPARISON: 12/01/2017 INDICATION: Syncope, chest pain TECHNIQUE: Frontal and lateral views of the chest are obtained. FINDINGS: The heart size is normal. The pulmonary vasculature is normal. The lungs are clear. IMPRESSION: 1. No acute pulmonary process.
[2018-01-12] MEDS ORDERED: NITROGLYCERIN SL TABS 0.4 MG TAB SUBLINGUAL PRN ×2 (13:33→16:12)
[2018-01-12] MEDS ORDERED: ASPIRIN 81 MG PO STA (16:12)
[2018-01-12] MEDS ORDERED: SODIUM CHLORIDE 0.9% 1,000 ML IV ONE (16:12)
[2018-01-12] MEDS ORDERED: MELATONIN 5 MG TABLET PO PRN (18:17)
[2018-01-12] MEDS ORDERED: CALCIUM CARBONATE 500 MG CHEWABLE PO PRN (18:17)
[2018-01-12] MEDS ORDERED: ACETAMINOPHEN TAB 325 MG TAB PO PRN (18:17)
[2018-01-12] MEDS ORDERED: ONDANSETRON 4 MG/2 ML VIAL IVP PRN (18:17)
--- NOTE | 2018-01-12 18:30 | P.HPIM ---
History of Present Illness H&P Date: 01/12/18 Chief Complaint: syncope Patient is a 42-year-old female with a past medical history of Owen- Parkinson-White status post 2 unsuccessful ablations, prior seizure in 2003, reflex sympathetic dystrophy, and dyslipidemia who presented to the ER after a syncopal episode. In the ER she underwent an extensive evaluation. On her initial vital signs she was found to be slightly tachycardic at 113. Chest x- ray was negative. EKG revealed normal sinus rhythm with no significant ST-T wave changes and normal intervals area orthostatic vital signs were negative. Cardiology was contacted due to her history of Ctmjz-[id number]-Grmic and was in agreement with her being placed in observation. Patient seen and examined at bedside in the emergency department. She states that she had been feeling well up until yesterday. Yesterday she was standing and working in became cool, sweaty, and clammy. She felt very lightheaded. She was able to lower herself to the floor and take some deep breaths and recovered without passing out. Today she was standing at the washing dishes. She then became lightheaded and developed tunnel vision. She took some deep breaths and thought she had recovered. She turned back on the water in the next thing she remembered was waking up on the floor. Her son and best friend witnessed this episode. She did not have any shaking or tremors. She did not lose control of her bowel or bladder. She did not have tongue biting. She has not taken any unusual medications or supplements. She only takes vitamin D and cholesterol medications. She uses medical marijuana for her RSD. She was hospitalized here in June 2017 for a syncopal episode. At that point in time she was seen by cardiology. She underwent an echocardiogram which was unremarkable. Her telemetry was negative. She underwent a Holter monitor which she states was for 30 days. On review of the chart this was negative. She was unable to follow up with cardiology as outpatient clinic secondary to them not taking her insurance. Patient states her insurance has changed. Review of Systems Pertinent positives and negatives as per HPI, remainder of review of systems is negative Past Medical History Past Medical History: Cancer, Hyperlipidemia, Pneumonia Additional Past Medical History / Comment(s): owen parkinson white syndrome, regional simplex dystrophy, "had a seizure 2003 r/t rsd- none since and takes no meds", age 22 had cervical cancer-had total hysterectomy/chemo, kidney stones , polynephritis, vitamin D deficiency History of Any Multi-Drug Resistant Organisms: None Reported Past Surgical History: Appendectomy, Cardiac Ablation, Heart Catheterization, Hysterectomy, Tonsillectomy Additional Past Surgical History / Comment(s): ablation 1999 and 2002 both unsuccessful Past Anesthesia/Blood Transfusion Reactions: No Reported Reaction Past Psychological History: Anxiety, Bipolar, Depression Smoking Status: Former smoker Past Alcohol Use History: None Reported Past Drug Use History: Marijuana Additional History: Her son lives with her. She uses medical marijuana. 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 - Past Family History Father Family Medical History: Diabetes Mellitus, Myocardial Infarction ([place]), Renal Disease Mother Family Medical History: Cancer, CVA/TIA Additional Family Medical History / Comment(s): "black lung-cancer Brother(s) Additional Family Medical History / Comment(s): 2 brothers with wpw syndrome Medications and Allergies Home Medications Medication Instructions Recorded Confirmed Type Atorvastatin Calcium [Lipitor] 10 mg PO HS 01/12/18 01/12/18 History Ergocalciferol [Vitamin D2] 50,000 unit PO GARCIA 01/12/18 01/12/18 History Allergies Allergy/AdvReac Type Severity Reaction Status Date / Time ofloxacin [From Floxin] Allergy Rash/Hives Verified 01/12/18 11:56 Physical Exam Osteopathic Statement: *. No significant issues noted on an osteopathic structural exam other than those noted in the History and Physical/Consult. Vitals: Vital Signs Temp Pulse Pulse Pulse Pulse Resp BP 01/12/18 16:40 86 18 136/86 01/12/18 15:53 84 84 84 18 01/12/18 14:10 85 18 129/89 01/12/18 12:26 91 18 145/81 01/12/18 11:41 98.6 F 115 H 18 135/76 BP BP BP Pulse Ox 01/12/18 16:40 96 01/12/18 15:53 141/78 141/83 128/72 100 01/12/18 14:10 95 01/12/18 12:26 97 01/12/18 11:41 96 Intake and Output 01/12/18 01/12/18 01/12/18 06:59 14:59 22:59 Other: Weight 67.132 kg Patient Weight 01/13/18 06:59 Weight 67.132 kg General: non toxic, no distress, appears at stated age, normal weight Derm: no unusual rashes/lesions no unusual ecchymoses, warm, dry Head: atraumatic, normocephalic, symmetric Eyes: EOMI, no lid lag, anicteric sclera, pupils equal round reactive to light ENT: Nose and ears atraumatic, no thrush, no pharyngeal erythema Neck: No thyromegaly, no cervical lymphadenopathy, trachea midline, supple Mouth: no lip lesion, mucus membranes moist Cardiovascular: S1S2 reg, no murmur, positive posterior tibial pulse bilateral, no edema, capillary refill less than 2 seconds Lungs: CTA bilateral, no rhonchi, no rales , no accessory muscle use Abdominal: soft, nontender to palpation, no guarding, no appreciable organomegaly, normal bowel sounds Ext: no gross muscle atrophy, muscle strength 5 out of 5 in all 4 extremities grossly, no contractures, Neuro: CN II-XI grossly intact, light touch intact all 4 extremities, finger to nose within normal limits, Psych: Alert, oriented, appropriate affect Results CBC & Chem 7: 01/12/18 12:07 01/12/18 12:07 Labs: Abnormal Lab Results - Last 24 Hours (Table) 01/12/18 01/12/18 01/12/18 Range/Units 11:30 12:07 12:07 WBC 12.5 H (3.8-10.6) k/uL Neutrophils # 8.3 H (1.3-7.7) k/uL BUN 20 H (7-17) mg/dL Calcium 10.3 H (8.4-10.2) mg/dL Urine Protein Trace H (Negative) Urine Blood Small H (Negative) Ur Squamous Epith Cells 5 H (0-4) /hpf Urine Bacteria Rare H (None) /hpf Urine Mucus Occasional H (None) /hpf Comments: EKG reviewed. Normal sinus rhythm. Normal rate. No significant ST-T wave changes. Normal intervals. Chest x-ray: report reviewed, image reviewed Thrombosis Risk Factor Assmnt - DVT/VTE Prophylaxis DVT/VTE Prophylaxis: Low risk, early ambulation encouraged Assessment and Plan Assessment: Syncope with history of Luevano Parkinson White -Telemetry monitoring -Await cardiology recommendations -Await echocardiogram -Has had Holter monitor and [place] of this last year -Cycle troponins Leukocytosis -Chest x-ray negative -ENT negative -We will check influenza Dehydration as evidenced by elevated BUN and calcium levels -IV fluids -Repeat labs in a.m. Dyslipidemia -Continue statin therapy -Recheck lipid profile in a.m. Reflex sympathetic dystrophy - outpatient follow-up Surrogate decision-maker: Mikel CODE STATUS:DNR, Oaky with cardioversion, intubation, and meds as long as heart is beating DVT prophylaxis: SCDs Discussed with: Patient, ED physician Anticipated discharge: [address]: Home A total of 65 minutes was spent on the care of this complex patient more than 50 % of the time was spent in counseling and care coordination.
[2018-01-12 19:08] LABS: Creatine Kinase 53 U/L (30-135)
[2018-01-12 19:20] LABS: Creatine Kinase MB <0.2 ng/mL (0.0-2.4); Troponin I <0.012 ng/mL (0.000-0.034)
[2018-01-12 19:28] VITALS: BMI 35.7
[2018-01-12] MEDS: SODIUM CHLORIDE 0.9% 1,000 ML IV SCH (19:38)
[2018-01-12] MEDS ORDERED: ATORVASTATIN 10 MG TAB PO SCH (21:00)
[2018-01-12] MEDS ORDERED: ALPRAZolam 0.5 MG TAB PO PRN (22:02)
[2018-01-13 00:08] LABS: Creatine Kinase 53 U/L (30-135)
[2018-01-13 00:20] LABS: Creatine Kinase MB <0.2 ng/mL (0.0-2.4); Troponin I <0.012 ng/mL (0.000-0.034)
[2018-01-13] MEDS: SODIUM CHLORIDE 0.9% 1,000 ML IV SCH ×2 (06:39→11:06)
[2018-01-13 08:16] VITALS: RESP 16
[2018-01-13 08:27] LABS: Anion Gap 10 mmol/L; Blood Urea Nitrogen 22 mg/dL (7-17); Calcium 9.4 mg/dL (8.4-10.2); Carbon Dioxide 25 mmol/L (22-30); Chloride 105 mmol/L (98-107); Cholesterol 204 mg/dL (<200); Glucose 90 mg/dL (74-99); HDL Cholesterol 47 mg/dL (40-60); LDL Cholesterol,Calculated 141 mg/dL (0-99); Potassium 4.4 mmol/L (3.5-5.1); Sodium 140 mmol/L (137-145); Triglycerides 78 mg/dL (<150)
[2018-01-13] MEDS ORDERED: ASPIRIN 325 MG TAB PO SCH (09:00)
[2018-01-13 09:08] LABS: HCT 39.3 % (34.0-46.0); HGB 13.2 gm/dL (11.4-16.0); MCH 30.7 pg (25.0-35.0); MCHC 33.6 g/dL (31.0-37.0); MCV 91.5 fL (80.0-100.0); Mean Platelet Volume 7.4; Platelet Count 319 k/uL (150-450); RBC 4.29 m/uL (3.80-5.40); RDW 12.6 % (11.5-15.5); WBC 8.3 k/uL (3.8-10.6)
--- NOTE | 2018-01-13 09:56 | ECHOF ---
Referral Reason:Syncope MEASUREMENTS -------- HEIGHT: 154.9 cm WEIGHT: 67.1 kg BP: 141/78 RVIDd: 2.1 cm (< 3.3) IVSd: 1.3 cm (0.6 - 1.1) LVIDd: 3.4 cm (3.9 - 5.3) LVPWd: 1.1 cm (0.6 - 1.1) IVSs: 1.3 cm LVIDs: 1.9 cm LVPWs: 1.4 cm LAESV Index (A-L): 7.87 ml/m Ao Diam: 3.0 cm (2.0 - 3.7) AV Cusp: 2.0 cm (1.5 - 2.6) LA Diam: 2.1 cm (2.7 - 3.8) MV E Hollis: 0.92 m/s MV DecT: 247 ms MV A Hollis: 0.72 m/s MV E/A Ratio: 1.28 RAP: 5.00 mmHg RVSP: 8.75 mmHg FINDINGS -------- Sinus rhythm. This was a technically adequate study. The left ventricular size is normal. There is mild concentric left ventricular hypertrophy. Overa ll left ventricular systolic function is normal with, an EF between 55 - 60 %. The right ventricle is normal in size and function. Normal LA size by volume 22+/-6 ml/m2. The right atrium is normal in size. Aortic valve is trileaflet and is mildly thickened. There is no evidence of aortic regurgitation. There is no evidence of aortic stenosis. The mitral valve leaflets are mildly thickened. There is trace mitral regurgitation. Trace tricuspid regurgitation present. Right ventricular systolic pressure is normal at < 35 mmHg. There is no evidence of pulmonary hypertension. The pulmonic valve was not well visualized. The aortic root size is normal. Normal inferior vena cava with normal inspiratory collapse consistent with estimated right atrial pre ssure of 5 mmHg. The pericardium is normal. There is no pericardial effusion. CONCLUSIONS -------- 1. Sinus rhythm. 2. This was a technically adequate study. 3. The left ventricular size is normal. 4. There is mild concentric left ventricular hypertrophy. 5. Overall left ventricular systolic function is normal with, an EF between 55 - 60 %. 6. Normal LA size by volume 22+/-6 ml/m2. 7. Aortic valve is trileaflet and is mildly thickened. 8. The mitral valve leaflets are mildly thickened. 9. There is trace mitral regurgitation. 10. Trace tricuspid regurgitation present. 11. Right ventricular systolic pressure is normal at < 35 mmHg. 12. There is no evidence of pulmonary hypertension. 13. The pulmonic valve was not well visualized. 14. The aortic root size is normal. 15. There is no pericardial effusion. COMMERCIAL REAL ESTATE LENDER: Cas Wolff RDCS
--- NOTE | 2018-01-13 10:06 | P.CRDCN ---
History of Present Illness Consult date: 01/13/18 Requesting physician: Sally Ford Consult reason: sycope Chief complaint: Syncope History of present illness: This is a 42-year-old female with history of Xrexx-Mtufmdvor-Tsehi syndrome status post ablation in 1999, she presents to the hospital with multiple episodes of syncope. According to the patient she states she gets extremely warm, then develops chills, then shortly thereafter she passes out. She states that she is only out for a few seconds, but each time upon wakening she vomits. She presented to the hospital in June 2017 with similar symptoms , she was seen in consultation by Dr. ELISHA Parham at that time. An echo was performed which revealed an ejection fraction of 55-60%. Patient was also recommended to wear an event monitor post discharge. EKG on arrival here shows a normal sinus rhythm with no acute changes. Chest x-ray does not reveal any acute process. Blood pressure 135/70, heart rate in the 90s, respirations 18. White blood cell count on admission 12.5, 8.3 this morning, hemoglobin 13.2. D- dimer negative. Sodium 140, potassium 4.4, BUN 22, creatinine 0.6. Troponins negative 3. Cholesterol 204, LDL 141, triglycerides 78, HDL 47. Influenza A and B-. At the time of my examination this morning, patient denies any palpitations, no dizziness or lightheadedness. 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- none since and takes no meds", age 22 had cervical cancer-had total hysterectomy/chemo, kidney stones , polynephritis, vitamin D deficiency History of Any Multi-Drug Resistant Organisms: None Reported Past Surgical History: Appendectomy, Cardiac Ablation, Heart Catheterization, Hysterectomy, Tonsillectomy Additional Past Surgical History / Comment(s): ablation 1999 and 2002 both unsuccessful Past Anesthesia/Blood Transfusion Reactions: No Reported Reaction Past Psychological History: Anxiety, Bipolar, Depression Smoking Status: Former smoker Past Alcohol Use History: None Reported Past Drug Use History: Marijuana - Past Family History Father Family Medical History: Diabetes Mellitus, Myocardial Infarction ([place]), Renal Disease Mother Family Medical History: Cancer, CVA/TIA Additional Family Medical History / Comment(s): "black lung-cancer Brother(s) Additional Family Medical History / Comment(s): 2 brothers with wpw syndrome Medications and Allergies Home Medications Medication Instructions Recorded Confirmed Type Atorvastatin Calcium [Lipitor] 10 mg PO HS 01/12/18 01/12/18 History Ergocalciferol [Vitamin D2] 50,000 unit PO GARCIA 01/12/18 01/12/18 History Allergies Allergy/AdvReac Type Severity Reaction Status Date / Time ofloxacin [From Floxin] Allergy Rash/Hives Verified 01/12/18 19:34 Physical Exam Vitals: Vital Signs Temp Pulse Pulse Pulse Pulse Pulse Pulse 01/13/18 08:00 97.6 F 81 01/13/18 04:00 98 F 74 01/13/18 03:44 70 01/12/18 23:54 80 01/12/18 22:05 63 01/12/18 19:56 72 01/12/18 19:55 97.3 F L 72 01/12/18 19:08 98.1 F 85 01/12/18 18:44 96.8 F L 77 01/12/18 16:40 86 01/12/18 15:53 84 84 84 01/12/18 14:10 85 01/12/18 12:26 91 01/12/18 11:41 98.6 F 115 H Resp BP BP BP BP BP Pulse Ox 01/13/18 08:00 16 123/77 94 L 01/13/18 04:00 18 110/73 95 01/13/18 03:44 18 01/12/18 23:54 18 01/12/18 22:05 18 143/77 100 01/12/18 19:56 16 01/12/18 19:55 16 140/90 97 01/12/18 19:08 17 143/72 94 L 01/12/18 18:44 18 137/86 98 01/12/18 16:40 18 136/86 96 01/12/18 15:53 18 141/78 141/83 128/72 100 01/12/18 14:10 18 129/89 95 01/12/18 12:26 18 145/81 97 01/12/18 11:41 18 135/76 96 Intake and Output 01/12/18 01/13/18 01/13/18 22:59 06:59 14:59 Other: Voiding Method Toilet Toilet # Voids 1 1 Weight 83.3 kg Assessment and plan #1 multiple syncopal episodes, likely vasovagal in nature #2 history of Luevano Parkinson White syndrome status post ablation Plan We will obtain orthostatic blood pressure and heart rate. Patient is been recommended to follow-up with her pantry cook, recommended tilt tablet testing. We will obtain an echocardiogram with Doppler study. DNP note has been reviewed, I agree with a documented findings and plan of care. Patient was seen and examined. Results 01/13/18 07:59 01/13/18 07:59 Cardiac Enzymes 01/12/18 01/12/18 01/12/18 Range/Units 12:07 12:07 18:31 AST 26 (14-36) U/L CK-MB (CK-2) <0.2 <0.2 (0.0-2.4) ng/mL Troponin I <0.012 <0.012 (0.000-0.034) ng/mL 01/12/18 Range/Units 23:23 AST (14-36) U/L CK-MB (CK-2) <0.2 (0.0-2.4) ng/mL Troponin I <0.012 (0.000-0.034) ng/mL Coagulation 01/12/18 Range/Units 12:07 PT 10.5 (9.0-12.0) sec APTT 23.2 (22.0-30.0) sec Lipids 01/13/18 Range/Units 07:59 Triglycerides 78 (<150) mg/dL Cholesterol 204 H (<200) mg/dL HDL Cholesterol 47 (40-60) mg/dL CBC 01/12/18 01/13/18 Range/Units 12:07 07:59 WBC 12.5 H 8.3 (3.8-10.6) k/uL RBC 4.89 4.29 (3.80-5.40) m/uL Hgb 15.2 13.2 (11.4-16.0) gm/dL Hct 44.3 39.3 (34.0-46.0) % Plt Count 404 319 (150-450) k/uL Comprehensive Metabolic Panel 01/12/18 01/13/18 Range/Units 12:07 07:59 Sodium 141 140 (137-145) mmol/L Potassium 4.7 4.4 (3.5-5.1) mmol/L Chloride 104 105 (98-107) mmol/L Carbon Dioxide 24 25 (22-30) mmol/L BUN 20 H 22 H (7-17) mg/dL Creatinine 0.78 0.69 (0.52-1.04) mg/dL Glucose 94 90 (74-99) mg/dL Calcium 10.3 H 9.4 (8.4-10.2) mg/dL AST 26 (14-36) U/L ALT 36 (9-52) U/L Alkaline Phosphatase 95 (38-126) U/L Total Protein 7.8 (6.3-8.2) g/dL Albumin 4.6 (3.5-5.0) g/dL Current Medications Generic Name Dose Route Start Last Admin Trade Name Freq PRN Reason Stop Dose Admin Acetaminophen 650 mg 01/12/18 18:17 01/12/18 19:52 Tylenol Tab PO 650 mg Q6HR PRN Administration Fever and/ or Pain Alprazolam 0.5 mg 01/12/18 22:02 01/12/18 22:10 Xanax PO 0.5 mg TID PRN Administration Anxiety Aspirin 325 mg 01/13/18 09:00 Aspirin PO DAILY [facility] Atorvastatin Calcium 10 mg 01/12/18 21:00 01/12/18 21:05 Lipitor PO 10 mg HS [place] Administration Calcium Carbonate/Glycine 500 mg 01/12/18 18:17 Tums PO TID PRN Heartburn Sodium Chloride 1,000 mls @ 120 mls/hr 01/12/18 18:30 01/13/18 06:39 Saline 0.9% IV Not Given .Q8H20M [place] Melatonin 5 mg 01/12/18 18:17 01/12/18 21:05 Melatonin PO 5 mg HS PRN Administration Insomnia Nitroglycerin 0.4 mg 01/12/18 16:12 Nitrostat SUBLINGUAL Q5M PRN Chest Pain Ondansetron HCl 4 mg 01/12/18 18:17 Zofran IVP Q6H PRN Nausea Intake and Output 01/12/18 01/13/18 01/13/18 22:59 06:59 14:59 Other: Voiding Method Toilet Toilet # Voids 1 1 Weight 83.3 kg 01/13/18 07:59 01/13/18 07:59
[2018-01-13 12:09] VITALS: BP 137/74; PULSE 76; TEMP 98
--- NOTE | 2018-01-13 17:55 | P.DS ---
Providers Date of admission: 01/12/18 16:09 Expected date of discharge: 01/13/18 Attending physician: Sally Ford DO Consults: 01/12/18 16:12 Consult Physician Stat Consulting Provider: [facility] Consult Reason/Comments: Syncope, chest pain Do you want consulting provider notified?: Yes Primary care physician: Neha Conway - Discharge Diagnosis(es) (1) Syncope Status: Acute (2) Dehydration Status: Acute (3) Leukocytosis Status: Acute (4) HLD (hyperlipidemia) Status: Acute (5) RSD (reflex sympathetic dystrophy) Status: Acute Hospital Course: Patient is a 42-year-old female with a past medical history of Owen- Parkinson-White status post 2 unsuccessful ablations, prior seizure in 2003, reflex sympathetic dystrophy, and dyslipidemia who presented to the ER after a syncopal episode. In the ER she underwent an extensive evaluation. On her initial vital signs she was found to be slightly tachycardic at 113. Chest x- ray was negative. EKG revealed normal sinus rhythm with no significant ST-T wave changes and normal intervals area orthostatic vital signs were negative. Cardiology was contacted due to her history of Czues-Ungphzvza-Zeeog and was in agreement with her being placed in observation. She was hospitalized here in June 2017 for a syncopal episode. At that point in time she was seen by cardiology. She underwent an echocardiogram which was unremarkable. Her telemetry was negative. She underwent a Holter monitor which she states was for 30 days. On review of the chart this was negative. She was unable to follow up with cardiology as outpatient clinic secondary to them not taking her insurance. Patient was seen by cardiology. Repeat echocardiogram was negative. Telemetry was unremarkable. Orthostatics were unremarkable. They recommend that she follow up with them in the office and see Dr. Palomino construction coordinator. They also recommended tilt table test. She was determined stable for discharge. I discussed with her that should this be unrevealing she should consider consultation with neurology with her history of RSD there may be a neurologic origin for this, she already has an upcoming appointment with neurology. I also ensure that she does not drive. She states that she has already had her license taken away. No medication changes were made during this hospitalization. She will follow up with Dr. Palomino approximately one week, follow-up with Dr. Roger Barker in one week, and then follow up with Dr. Isaac of neurology for her already scheduled appointment. Patient seen and examined at bedside. No additional recurrent episodes of syncope, she did have one episode of presyncope last evening but after fluids this resolved. No chest pain or shortness of breath. Vital signs reviewed and stable. General: non toxic, no distress, appears at stated age Derm: warm, dry Head: atraumatic, normocephalic, symmetric Eyes: EOMI, no lid lag, anicteric sclera Mouth: no lip lesion, mucus membranes moist Cardiovascular: S1S2 reg, no murmur, positive posterior tibial pulse bilateral, Lungs: CTA bilateral, no rhonchi, no rales , no accessory muscle use Abdominal: soft, nontender to palpation, no guarding, no appreciable organomegaly Ext: no gross muscle atrophy, no edema, no contractures Neuro: CN II-XI grossly intact, no focal neuro deficits Psych: Alert, oriented, appropriate affect A total of 20 minutes of time were spent preparing this complex discharge summary . Pertinent Studies: Echo-mild LVH, ejection fraction 55-60% Patient Condition at Discharge: Stable Plan - Discharge Summary Discharge Rx Participant: No New Discharge Prescriptions: Continue Atorvastatin Calcium [Lipitor] 10 mg PO HS Ergocalciferol [Vitamin D2 (DRISDOL)] 50,000 unit PO GARCIA Discharge Medication List Atorvastatin Calcium [Lipitor] 10 mg PO HS 01/12/18 [History] Ergocalciferol [Vitamin D2 (DRISDOL)] 50,000 unit PO GARCIA 01/12/18 [History] Follow up Appointment(s)/Referral(s): Mario Lawrence MD [STAFF PHYSICIAN] - 1 Week (Please call the office on Monday, as Dr. Turner has recommended a Tilt Table Test as an outpatient test. ) Amairani Greene MD [STAFF PHYSICIAN] - As Needed (as already scheduled) Neha Conway MD [Primary Care Provider] - 1-2 days Patient Instructions/Handouts: Chest Pain (DC), Syncope (DC) Activity/Diet/Wound Care/Special Instructions: regular diet Activity as tolerated, no driving Discharge Disposition: HOME SELF-CARE
== END 2018-01-13 14:32 | disposition home or self-care (01) ==
LOC: EC 11:37 → 3OBS 16:09
PROVIDERS: ADMIT Internal Medicine; ATTEND Internal Medicine
DX: R55 Syncope and collapse (principal); E86.0 Dehydration; D72.829 Elevated white blood cell count, unspecified; E78.5 Hyperlipidemia, unspecified; G90.50 Complex regional pain syndrome I, unspecified; I45.6 Pre-excitation syndrome; Z79.899 Other long term (current) drug therapy; Z88.1 Allergy status to other antibiotic agents; Z83.3 Family history of diabetes mellitus; Z82.49 Family history of ischemic heart disease and other diseases of the circulatory system; Z80.1 Family history of malignant neoplasm of trachea, bronchus and lung; Z82.3 Family history of stroke; Z87.891 Personal history of nicotine dependence; F41.9 Anxiety disorder, unspecified; F31.9 Bipolar disorder, unspecified; Z87.01 Personal history of pneumonia (recurrent); Z85.41 Personal history of malignant neoplasm of cervix uteri; Z92.21 Personal history of antineoplastic chemotherapy; E55.9 Vitamin D deficiency, unspecified; Z66 Do not resuscitate; R07.89 Other chest pain
CPT/HCPCS: 96361 ×2; 96374; 99285; 36415; 93005; 93306; 85379; 80061; 80053; 80048; 82550; 82553; 83735; 84484; 85025; 85027; 85610; 85730; 81001; 81025; 87502; 71046; G0378 ×2; J2405